=== PATIENT | male | born 1985 | race Caucasian/White ===

== ENCOUNTER 2023-01-13 03:24 | Emergency (ER) | payer SELFPAY ==
[~2023-01-13] VITALS: Ht 167.6 cm; Wt 73.0 kg
[2023-01-13 03:47] VITALS: BP 106/70; PULSE 61; TEMP 98.5; O2SAT 100
[2023-01-13 04:51] LABS: BASOPHILS % 0.3 % (0.0-2.0); EOSINOPHILS % 0.2 % (0.0-5.0); HEMOGLOBIN. 14.2 g/dL (14.0-18.0); LYMPHOCYTES % 10.3 % (20.0-50.0); MEAN CORPUSCULAR HEMOGLOBIN 28.7 pg (28.0-32.0); MEAN CORPUSCULAR HGB CONC 33.8 g/dL (31.0-37.0); MEAN CORPUSCULAR VOLUME 84.7 fL (80.0-94.0); MONOCYTES % 4.6 % (2.0-8.0); NEUTROPHILS % 84.6 % (40.0-76.0); PLATELET 312 x1000/uL (130-400); RED BLOOD CELL COUNT 4.96 mill/uL (4.7-6.1); WHITE BLOOD COUNT 12.4 x1000/uL (4.5-11.0)
[2023-01-13 04:53] LABS: PROTHROMBIN TIME 10.8 sec (9.6-11.0)
[2023-01-13 04:54] LABS: CHLORIDE 103 mEq/L (98-107); INDEX HEMOLYSI 1 (1-3); INDEX ICTERIC 1 (1-4); INDEX LIPEMIC 1 (1-3); POTASSIUM 3.8 mEq/L (3.5-5.1); SODIUM 138 mEq/L (136-145)
[2023-01-13 05:00] LABS: CLARITY URINE CLEAR (CLEAR); COLOR URINE YELLOW (YELLOW); GLUCOSE URINE NEGATIVE (NEGATIVE); KETONES URINE NEGATIVE (NEGATIVE); LEUKOCYTE ESTERASE URINE NEGATIVE (NEGATIVE); NITRITE URINE NEGATIVE (NEGATIVE); OCCULT BLOOD URINE NEGATIVE (NEGATIVE); PROTEIN URINE NEGATIVE (NEGATIVE); SPECIFIC GRAVITY URINE 1.023 (1.005-1.030)
[2023-01-13 05:02] LABS: ALANINE AMINOTRANSFERASE 44 IU/L (13-61); ALBUMIN 3.9 g/dL (3.4-5.0); ASPARTATE AMINOTRANSFERASE 23 IU/L (15-37); BILIRUBIN TOTAL 0.5 mg/dL (0.1-1.0); CALCIUM 9.2 mg/dL (8.5-10.1); CARBON DIOXIDE 27 mEq/L (21-32); CREATININE 0.7 mg/dL (0.6-1.3); GLUCOSE 122 mg/dL (70-105); PROTEIN TOTAL 7.9 g/dL (6.0-8.3); UREA NITROGEN BLOOD 9 mg/dL (7-21)
[2023-01-13] MEDS ORDERED: MAGNESIUM/ALUMINUM HYDROXIDE/SIMETHICONE 30ML UDC PO ONE ×2 (06:15→10:30)
[2023-01-13] MEDS ORDERED: ONDANSETRON 4MG ODT PO ONE (06:15)
[2023-01-13] MEDS ORDERED: FAMO-135 MT (08:31)
[2023-01-13] MEDS ORDERED: FAMOTIDINE 20MG TABLET PO ONE (09:15)
[2023-01-13 10:39] LABS: TROPONIN I HIGH SENSITIVITY 27 ng/L (<78)
== END 2023-01-13 11:47 | disposition home or self-care (01) ==
LOC: ER 03:24
DX: R10.13 Epigastric pain (principal); R11.2 Nausea with vomiting, unspecified
CPT/HCPCS: 99285; 76705; 71045; 80053; 81003; 83690; 85025; 85610; 84484; 36415; 93005; Q0162